=== PATIENT | male | born 1945 | race Caucasian/White ===

== ENCOUNTER 2020-06-01 08:44 | Emergency (ER) | payer MEDICARE ==
--- NOTE | 2020-06-01 08:58 | ERPHSYRPT ---
- History of Present Illness Time Seen by Provider: 06/01/20 08:53 Source: patient Exam Limitations: no limitations Physician History: This is a 75-year-old white male who has a significant cardiac history and was here today to get a Cardiolite cardiac stress test. He did not receive the medication to perform the test. However, when he was at rest at the beginning of his test, a resting EKG was performed which showed heart rate of 130 bpm. He was brought to the emergency department by respiratory therapy who runs the cardiac stress test. He is relatively asymptomatic. Patient denies chest pain. He denies shortness of breath. Patient denies dizziness. He has had no fever or cough. However, he has noticed his heart racing for at least a month. Dr. Barbour his geothermal field technician. Dr. Barbour is aware of the patient's current EKG and wanted the patient to be sent to our emergency department for further evaluation. Patient has a cardiac pacemaker defibrillator in place and should not be at a heart rate of 130. Patient has not sensed any defibrillation. He took his medications last night. Patient is also taking Plavix and Pradaxa. Timing/Duration: today, other Quality: other (No chest pain but has a sensation that his heart is racing fast) Chest Pain Radiation: no radiation Severity of Pain-Max: none Severity of Pain-Current: none Nitro Today/Relief: no nitro taken today Aspirin Treatment Today: no aspirin today Associated Symptoms: denies symptoms, other (Palpitations/tachycardia) Prior Chest Pain/Cardiac Workup: cardiac cath, stress test Allergies/Adverse Reactions: No Known Drug Allergies Allergy (Verified 06/01/20 08:58) Home Medications: Allopurinol 100 mg [Zyloprim 100 mg] 100 mg PO DAILY 08/17/13 [History] Amlodipine Besylate 5 mg [Norvasc 5 mg] 5 mg PO DAILY 08/17/13 [History] Atorvastatin Calcium [Lipitor] 80 mg PO DAILY 08/17/13 [History] Clopidogrel Bisulfate 75 mg [PLAVIX 75 MG Tablet] 75 mg PO DAILY 08/17/13 [History] Dabigatran Etexilate Mesylate [Pradaxa] 150 mg PO BID 08/17/13 [History] Isosorbide Mononitrate 30 mg [Imdur 30 MG] 30 mg PO DAILY 08/17/13 [History] [place]-3 Fatty Acids/Fish Oil [Fish Oil 1,000 mg Capsule] 1,000 mg PO BID 08/17/13 [History] Sertraline HCl 100 mg [Zoloft 100 MG] 100 mg PO DAILY 08/17/13 [History] lisinopriL [Lisinopril] 20 mg PO BID 08/17/13 [History] Hx Influenza Vaccination/Date Given: Yes Hx Pneumococcal Vaccination/Date Given: No Travel Risk - International Travel Have you traveled outside of the country in past 3 weeks: No - Coronavirus Screening Are you exhibiting any of the following symptoms?: No Close contact with a COVID-19 positive Pt in past 14-21 Days: No - Vaccine Status Have you recieved a Covid-19 vaccination: Yes 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: [employer] - Review of Systems Constitutional: No Symptoms Eyes: No Symptoms Ears, Nose, & Throat: No Symptoms Respiratory: No Symptoms Cardiac: Palpitations Abdominal/Gastrointestinal: No Symptoms Genitourinary Symptoms: No Symptoms Musculoskeletal: No Symptoms Skin: No Symptoms Neurological: No Symptoms Psychological: No Symptoms Endocrine: No Symptoms - Past Medical History Pertinent Past Medical History: Yes Neurological History: No Pertinent History ENT History: No Pertinent History Cardiac History: Angina, Coronary Artery Disease, High Cholesterol, Hypertension, Myocardial Infarction ([place]), Other Respiratory History: No Pertinent History Endocrine Medical History: No Pertinent History Musculoskeletal History: No Pertinent History GI Medical History: No Pertinent History History: No Pertinent History Psycho-Social History: Anxiety, Depression Male Reproductive Disorders: No Pertinent History Other Medical History: gout - Past Surgical History Past Surgical History: Yes Neuro Surgical History: No Pertinent History Cardiac: CABG, Cardiac Catheterization, Cardiac Stent, Valve Replacement Respiratory: No Pertinent History Gastrointestinal: Cholecystectomy Musculoskeletal: Orthopedic Surgery Other Surgical History: right thumb removed and stump stitched into abdomen and reconstructed - Social History Smoking Status: Never smoker Exposure to second hand smoke: No Drug Use: none - Nursing Vital Signs Nursing Vital Signs: Initial Vital Signs Temperature 97.8 F 06/01/20 08:45 Pulse Rate 130 H 06/01/20 08:45 Respiratory Rate 25 H 06/01/20 08:45 Blood Pressure 116/87 06/01/20 08:45 O2 Sat by Pulse Oximetry 98 06/01/20 08:45 Pain Scale Pain Intensity 0 - Physical Exam General Appearance: no apparent distress, alert, anxiety Eye Exam: PERRL/EOMI, eyes nml inspection Ears, Nose, Throat Exam: normal ENT inspection, moist mucous membranes Neck Exam: normal inspection, non-tender, supple, full range of motion Respiratory Exam: normal breath sounds, lungs clear, airway intact, No chest tenderness, No respiratory distress Cardiovascular Exam: tachycardia Gastrointestinal/Abdomen Exam: soft, normal bowel sounds, No tenderness Rectal Exam: not done Back Exam: normal inspection, normal range of motion, No CVA tenderness, No vertebral tenderness Extremity Exam: normal inspection, normal range of motion, pelvis stable Neurologic Exam: alert, oriented x 3, cooperative, juvenile court liaison II-XII nml as tested, normal mood/affect, nml cerebellar function, nml station & gait, sensation nml Skin Exam: normal color, warm, dry Lymphatic Exam: No adenopathy SpO2 Interpretation: normal O2 Delivery: Room Air - Course Nursing assessment & vital signs reviewed: Yes EKG Interpreted by Me: RATE (130), Other (Ventricularpaced rhythm. No acute ischemic changes.) Ordered Tests: Active Orders 24 hr Category Date Time Status Carbide Grinder STAT Care 06/01/20 09:11 Active EKG-ER Only STAT Care 06/01/20 09:10 Active IV Insertion STAT Care 06/01/20 09:10 Active Pulse Oximetry (ED) STAT Care 06/01/20 09:10 Active CHEST 1 VIEW (PORTABLE) Stat Exams 06/01/20 09:43 Completed CBC W DIFF Stat Lab 06/01/20 09:00 Completed CMP Stat Lab 06/01/20 09:00 Completed D-DIMER QUANTITATIVE Stat Lab 06/01/20 09:43 Completed ESR [Erythrocyte Sedimentation Rate] Stat Lab 06/01/20 09:44 Completed MAGNESIUM Stat Lab 06/01/20 09:00 Completed NT PRO BNP Stat Lab 06/01/20 09:00 Completed PROTIME WITH INR Stat Lab 06/01/20 09:00 Completed T4 (Thyroxine) Stat Lab 06/01/20 09:43 Completed TROPONIN Q3H Lab 06/01/20 09:00 Completed TROPONIN Q3H Lab 06/01/20 12:15 Ordered TROPONIN Q3H Lab 06/01/20 15:15 Ordered TROPONIN Q3H Lab 06/01/20 18:15 Ordered TROPONIN Q3H Lab 06/01/20 21:15 Ordered TSH [TSH, 3RD Generation] Stat Lab 06/01/20 09:43 Completed Medication Summary Generic Name Dose Route Start Last Admin Trade Name Freq PRN Reason Stop Dose Admin Diltiazem HCl 100 mls @ 5 mls/hr 06/01/20 11:08 Cardizem Drip 100 Mg/100 Ml D5w IV 07/01/20 11:07 .Q20H PRN HEART RATE/ A-FIB Protocol 5 MG/HR Discontinued Medications Generic Name Dose Route Start Last Admin Trade Name Freq PRN Reason Stop Dose Admin Furosemide 40 mg 06/01/20 09:42 Lasix 40 Mg/4 Ml IV 06/01/20 09:43 STAT ONE Hydromorphone HCl 1 mg 06/01/20 10:33 06/01/20 10:37 Hydromorphone 1 Mg/Ml Injection IV 06/01/20 10:34 Not Given STAT ONE Sodium Chloride Confirm 06/01/20 10:26 Sodium Chloride 0.9% 100 Ml Ivpb Administered 06/01/20 10:27 Dose 100 mls @ ud IV .STK-MED ONE Metoprolol Tartrate 5 mg 06/01/20 09:33 06/01/20 10:21 Lopressor 5 Mg/5 Ml Injection IV 06/01/20 09:34 5 mg STAT ONE Administration Metoprolol Tartrate Confirm 06/01/20 10:19 Lopressor 5 Mg/5 Ml Injection Administered 06/01/20 10:20 Dose 5 mg IV .STK-MED ONE Ondansetron HCl 4 mg 06/01/20 10:33 06/01/20 10:37 Zofran 4 Mg/2 Ml Vial IV 06/01/20 10:34 Not Given STAT ONE Lab/Rad Data: Laboratory Result Diagrams 06/01/20 09:00 06/01/20 09:00 Laboratory Results 06/01/20 06/01/20 06/01/20 Range/Units 09:44 09:43 09:43 WBC (4.0-10.5) K/mm3 RBC (4.1-5.6) M/mm3 Hgb (12.5-18.0) gm/dl Hct (42-50) % MCV (78-100) fl MCH (26-32) pg MCHC (32-36) g/dl RDW (11.5-14.0) % Plt Count (150-450) K/mm3 MPV (7.5-11.0) fl Gran % (36.0-66.0) % Eos # (Auto) (0-0.5) Absolute Lymphs (auto) (1.0-4.6) Absolute Monos (auto) (0.0-1.3) Lymphocytes % (24.0-44.0) % Monocytes % (0.0-12.0) % Eosinophils % (0.00-5.0) % Basophils % (0.0-0.4) % Absolute Granulocytes (1.4-6.9) Basophils # (0-0.4) ESR 25 H (0-15) mm/hr PT (8.83-12.87) SECONDS INR (0.8-3.0) D-Dimer 450 (215-500) ng/mL Sodium (137-145) mmol/L Potassium (3.5-5.1) mmol/L Chloride (98-107) mmol/L Carbon Dioxide (22-30) mmol/L Anion Gap (5-15) MEQ/L BUN (9-20) mg/dL Creatinine (0.66-1.25) mg/dL Estimated GFR ML/MIN Glucose (74-106) mg/dL Calcium (8.4-10.2) mg/dL Magnesium (1.6-2.3) mg/dL Total Bilirubin (0.2-1.3) mg/dL AST (17-59) U/L ALT (0-50) U/L Alkaline Phosphatase (38-126) U/L Troponin I (0.000-0.034) ng/mL NT-Pro-B Natriuret Pep (0-1800) pg/mL Serum Total Protein (6.3-8.2) g/dL Albumin (3.5-5.0) g/dL Thyroxine (T4) 12.3 H (5.53-10.96) ug/dL TSH 3rd Generation < 0.015 L (0.47-4.68) mIU/L 06/01/20 06/01/20 06/01/20 Range/Units 09:00 09:00 09:00 WBC (4.0-10.5) K/mm3 RBC (4.1-5.6) M/mm3 Hgb (12.5-18.0) gm/dl Hct (42-50) % MCV (78-100) fl MCH (26-32) pg MCHC (32-36) g/dl RDW (11.5-14.0) % Plt Count (150-450) K/mm3 MPV (7.5-11.0) fl Gran % (36.0-66.0) % Eos # (Auto) (0-0.5) Absolute Lymphs (auto) (1.0-4.6) Absolute Monos (auto) (0.0-1.3) Lymphocytes % (24.0-44.0) % Monocytes % (0.0-12.0) % Eosinophils % (0.00-5.0) % Basophils % (0.0-0.4) % Absolute Granulocytes (1.4-6.9) Basophils # (0-0.4) ESR (0-15) mm/hr PT 18.0 H (8.83-12.87) SECONDS INR 1.59 (0.8-3.0) D-Dimer (215-500) ng/mL Sodium 142 (137-145) mmol/L Potassium 4.0 (3.5-5.1) mmol/L Chloride 108 H (98-107) mmol/L Carbon Dioxide 22 (22-30) mmol/L Anion Gap 15.2 H (5-15) MEQ/L BUN 38 H (9-20) mg/dL Creatinine 1.36 H (0.66-1.25) mg/dL Estimated GFR 54.3 ML/MIN Glucose 121 H (74-106) mg/dL Calcium 9.7 (8.4-10.2) mg/dL Magnesium 2.0 (1.6-2.3) mg/dL Total Bilirubin 0.60 (0.2-1.3) mg/dL AST 42 (17-59) U/L ALT 34 (0-50) U/L Alkaline Phosphatase 89 (38-126) U/L Troponin I < 0.012 (0.000-0.034) ng/mL NT-Pro-B Natriuret Pep 1850 H (0-1800) pg/mL Serum Total Protein 7.1 (6.3-8.2) g/dL Albumin 4.2 (3.5-5.0) g/dL Thyroxine (T4) (5.53-10.96) ug/dL TSH 3rd Generation (0.47-4.68) mIU/L 06/01/20 Range/Units 09:00 WBC 7.1 (4.0-10.5) K/mm3 RBC 4.42 (4.1-5.6) M/mm3 Hgb 12.6 (12.5-18.0) gm/dl Hct 40.6 L (42-50) % MCV 91.9 (78-100) fl MCH 28.5 (26-32) pg MCHC 31.0 L (32-36) g/dl RDW 14.8 H (11.5-14.0) % Plt Count 215 (150-450) K/mm3 MPV 9.4 (7.5-11.0) fl Gran % 68.6 H (36.0-66.0) % Eos # (Auto) 0.22 (0-0.5) Absolute Lymphs (auto) 1.47 (1.0-4.6) Absolute Monos (auto) 0.51 (0.0-1.3) Lymphocytes % 20.8 L (24.0-44.0) % Monocytes % 7.2 (0.0-12.0) % Eosinophils % 3.1 (0.00-5.0) % Basophils % 0.3 (0.0-0.4) % Absolute Granulocytes 4.84 (1.4-6.9) Basophils # 0.02 (0-0.4) ESR (0-15) mm/hr PT (8.83-12.87) SECONDS INR (0.8-3.0) D-Dimer (215-500) ng/mL Sodium (137-145) mmol/L Potassium (3.5-5.1) mmol/L Chloride (98-107) mmol/L Carbon Dioxide (22-30) mmol/L Anion Gap (5-15) MEQ/L BUN (9-20) mg/dL Creatinine (0.66-1.25) mg/dL Estimated GFR ML/MIN Glucose (74-106) mg/dL Calcium (8.4-10.2) mg/dL Magnesium (1.6-2.3) mg/dL Total Bilirubin (0.2-1.3) mg/dL AST (17-59) U/L ALT (0-50) U/L Alkaline Phosphatase (38-126) U/L Troponin I (0.000-0.034) ng/mL NT-Pro-B Natriuret Pep (0-1800) pg/mL Serum Total Protein (6.3-8.2) g/dL Albumin (3.5-5.0) g/dL Thyroxine (T4) (5.53-10.96) ug/dL TSH 3rd Generation (0.47-4.68) mIU/L - Progress Progress: improved, re-examined Air Movement: good Progress Note: 06/01/20 09:59 Medical decision making: I spoke with geothermal field technician Dr. Barbour. He is well aware of this patient and the patient's pacemaker/defibrillator was interrogated upon arrival into this facility. He he is aware of the interrogation results. The plan for this patient is to provide the patient with a combination of beta- genaro and/or Cardizem. We will begin with low dosing intravenously. We will also evaluate his thyroid and determine if there is a type of infection present. These medical entities may be causing the patient's symptoms. After our work- up is completed, patient is to be transferred to [facility] to the hospitalist and then the cardiology group will be consulted. I discussed this issue with the patient. 06/01/20 10:08 New borderline cardiomegaly on today's chest x-ray. No acute pneumonic process present 06/01/20 11:[address] Nice at 1110 this morning. He is the hospitalist on-call for [facility]. I reviewed the patient history, work-up results. He accepts the patient in transfer. They will contact us when a bed is ready. Blood Culture(s) Obtained: Yes Antibiotics given: No Counseled pt/family regarding: lab results, diagnosis, rad results - Departure Departure Disposition: Transfer Clinical Impression: CHF (congestive heart failure), Hyperthyroidism, Tachyarrhythmia Condition: Fair Critical Care Time: Yes Critical Care Time(excluding separately billable procedures): Critical 30-74 mins Referrals: SHARITA CAMPOVERDE MD [Primary Care Provider] - Instructions: Heart Failure
[2020-06-01 09:18] LABS: Absolute Neutrophil Ct (ANC) 4.84 (1.4-6.9); BASOPHIL % 0.3 % (0.0-0.4); Basophil (Absolute #) 0.02 (0-0.4); Eosinophil % 3.1 % (0.00-5.0); Eosinophil (Absolute #) 0.22 (0-0.5); Hematocrit 40.6 % (42-50); Hemoglobin 12.6 gm/dl (12.5-18.0); INR 1.59 (0.8-3.0); Lymphocyte (Absolute #) 1.47 (1.0-4.6); Lymphocytes % 20.8 % (24.0-44.0); Mean Cell Volume 91.9 fl (78-100); Mean Corpuscular Hemoglobin 28.5 pg (26-32); Mean Platelet Volume 9.4 fl (7.5-11.0); Monocyte (Absolute #) 0.51 (0.0-1.3); Monocytes % 7.2 % (0.0-12.0); Neutrophil % 68.6 % (36.0-66.0); Platelet Count 215 K/mm3 (150-450); Red Blood Count 4.42 M/mm3 (4.1-5.6); Red Cell Distribution Width 14.8 % (11.5-14.0); White Blood Count 7.1 K/mm3 (4.0-10.5)
[2020-06-01 09:31] LABS: ALBUMIN 4.2 g/dL (3.5-5.0); ANION GAP 15.2 MEQ/L (5-15); BILIRUBIN,TOTAL 0.6 mg/dL (0.2-1.3); Calcium 9.7 mg/dL (8.4-10.2); Creatinine 1 1.36 mg/dL (0.66-1.25); EST GLOMERULAR FILTRATION RATE 54.3 ML/MIN; Total Protein 7.1 g/dL (6.3-8.2)
[2020-06-01] MEDS ORDERED: LOPRESSOR 5 MG/5 ML INJECTION IV ONE ×2 (09:33→10:19)
[2020-06-01] MEDS ORDERED: Lasix 40 MG/4 ML IV ONE (09:42)
--- NOTE | 2020-06-01 10:03 | XRAY ---
Indication: Cough. Tachycardia. Comparison: May 17, 2015. Portable chest remains clear again with incidental calcified granulomas. Heart is now borderline enlarged with new left dual-lead pacemaker and stable cardiac valve replacement surgery. Bony thorax intact. Impression: New borderline cardiomegaly and new left pacemaker. Negative for acute pneumonic process or CHF.
[2020-06-01] MEDS ORDERED: Sodium Chloride 0.9% 100 ML IVPB 100 ML IV ONE (10:26)
[2020-06-01 10:31] LABS: T4 (Thyroxine) 12.3 ug/dL (5.53-10.96); TSH, 3RD Generation < 0.015 mIU/L (0.47-4.68)
[2020-06-01] MEDS ORDERED: Hydromorphone 1 mg/ml Injection IV ONE (10:33)
[2020-06-01] MEDS ORDERED: Zofran 4 MG/2 ML VIAL IV ONE (10:33)
[2020-06-01] MEDS ORDERED: CARDIZEM DRIP 100 MG/100 ML D5W 100 ML IV PRN (11:08)
[2020-06-01] MEDS ORDERED: CARDIZEM DRIP 100 MG/100 ML D5W 100 ML IV ONE (11:09)
[2020-06-01] MEDS ORDERED: Lasix 40 MG/4 ML ONE (13:09)
[2020-06-01] MEDS ORDERED: Sodium Chloride 0.9% 500 ML 500 ML IV ONE (13:09)
[2020-06-01] MEDS ORDERED: Sodium Chloride 0.9% 500 ML 500 ML IV SCH (13:15)
[2020-06-01 14:07] VITALS: BP 98/76; PULSE 127; O2SAT 97
== END 2020-06-01 15:15 | disposition short-term general hospital (02) ==
LOC: ED 08:44
DX: I50.9 Heart failure, unspecified (principal); E05.90 Thyrotoxicosis, unspecified without thyrotoxic crisis or storm; R00.0 Tachycardia, unspecified; Z79.899 Other long term (current) drug therapy; I25.10 Atherosclerotic heart disease of native coronary artery without angina pectoris; I10 Essential (primary) hypertension; I25.2 Old myocardial infarction; E78.00 Pure hypercholesterolemia, unspecified; F41.8 Other specified anxiety disorders; Z87.898 Personal history of other specified conditions
CPT/HCPCS: 36415; 71045; 78451; 80053; 83735; 83880; 84436; 84443; 84484; 85025; 85379; 85610; 85652; 93005; 93015; 93041; 94760; 96365; 96366; 96374; 96375; 99285; 99291; A9502; J1940; J2785

== ENCOUNTER 2024-03-24 05:45 | Day surgery (SDC) | payer MEDICARE ==
[2024-03-24 06:30] VITALS: RESP 16
[2024-03-24] MEDS: Lactated Ringers 1,000 ML IV SCH (06:43)
[2024-03-24] MEDS ORDERED: propofoL IV ONE ×2 (06:53→08:04)
[2024-03-24 06:55] LABS: ANION GAP 14.3 MEQ/L (5-15); Calcium 9.6 mg/dL (8.4-10.2); Creatinine 1 1.08 mg/dL (0.66-1.25); EST GLOMERULAR FILTRATION RATE 70.2 ML/MIN; Potassium 3.8 mmol/L (3.5-5.1)
[2024-03-24] MEDS ORDERED: Versed 2 MG/2 ML Injection ONE (07:03)
[2024-03-24 08:04] VITALS: TEMP 97.7
[2024-03-24 08:13] VITALS: PULSE 72; O2SAT 97
[2024-03-24 08:14] VITALS: BP 126/80
--- NOTE | 2024-03-25 12:51 | OP ---
SURGERY DATE/TIME: 03/24/2024 0700 PREOPERATIVE DIAGNOSIS: Screening colonoscopy. POSTOPERATIVE DIAGNOSES: 1) Colon polyps x7. 2) Diverticulosis. PROCEDURE PERFORMED: Colonoscopy. SURGEON: Herber Ansari MD ANESTHESIA: MAC by Willy Moore CRNA. ESTIMATED BLOOD LOSS: Minimal. SPECIMENS: Seven hot forceps polypectomies. DESCRIPTION OF PROCEDURE AND FINDINGS: After informed written consent was obtained, the patient was taken to the endoscopy suite. He was placed in the left lateral decubitus position, and anesthesia was titrated to the desired level of consciousness. Digital rectal exam showed external hemorrhoids, normal sphincter tone, no internal lesions. The scope was inserted in the rectum, sequentially the entire colonic mucosa was traversed. In the area of the cecum there were multiple polyps, 4 in total removed from the ascending colon, grasped with forceps, cauterized, and sent in the same specimen container. Upon withdrawal, in the proximal sigmoid region there was another sessile polyp, which was grasped with the forceps, cauterized, and removed. There was an additional polyp in the distal sigmoid and then, a small sessile polyp in the rectum, all of which were removed with hot forceps, cauterized and sent for pathology testing. Prior to withdrawal, retroflexion showed no internal lesions. Scope was removed and the patient was transferred to the recovery room in good condition. I have advised that he follow up in a wee week for pathology reports.
== END 2024-03-24 08:28 | disposition home or self-care (01) ==
LOC: SDC 05:45
PROVIDERS: ATTEND Family Medicine
DX: Z12.11 Encounter for screening for malignant neoplasm of colon (principal); K57.30 Diverticulosis of large intestine without perforation or abscess without bleeding; K64.4 Residual hemorrhoidal skin tags; D12.7 Benign neoplasm of rectosigmoid junction; D12.2 Benign neoplasm of ascending colon; D12.4 Benign neoplasm of descending colon; D12.3 Benign neoplasm of transverse colon
CPT/HCPCS: 36415; 80048; 93005; 99100; J2250; J2704